=== PATIENT | female | born 1975 | race Caucasian/White ===

== ENCOUNTER 2017-01-09 14:40 | Emergency (ER) | payer OTHER ==
[~2017-01-09] VITALS: Wt 98.0 kg
--- NOTE | 2017-01-09 16:36 | RADRPT ---
PROCEDURE: US Pelvis. CLINICAL INDICATION: Pelvic pain. TECHNIQUE: The pelvis was evaluated with transabdominal and transvaginal sonography in the axial a nd sagittal planes. COMPARISON: No prior study is available for comparison. FINDINGS: Uterus: 8.8 x 5.6 x 8.6 cm. Endometrium: 11.2 mm. An IUD is present in satisfactory position within the endometrial canal. Right ovary: 3.1 x 1.7 x 2.1 cm. Left ovary: 2.9 x 1.3 x 2.1 cm. Uterine masses: None. Ovarian masses: None. Color Doppler and pulsed Doppler sonography demonstrate normal flow to the ova jada. Other pelvic masses: None. Free fluid: None. IMPRESSION: 1. IUD in satisfactory position. 2. Otherwise normal pelvic ultrasound. RPTAT: QQ .Demetrius Herring MD, MD Date Time Electronically viewed and signed by .Demetrius Herring MD, on 01/09/2017 16:36 .R/
[2017-01-09 17:14] LABS: ADD UMIC YES; UR ASCORBIC ACID NEGATIVE (NEGATIVE); UR BILIRUBIN (Dip) NEGATIVE (NEGATIVE); UR BLOOD (Dip) 3+ mg/dL (NEGATIVE); UR CLARITY SLIGHTLY CLOUDY (CLEAR); UR COLOR YELLOW (YELLOW); UR GLUCOSE (Dip) NEGATIVE (NEGATIVE); UR KETONES (Dip) NEGATIVE (NEGATIVE); UR LEUKOCYTE ESTERASE (Dip) TRACE Leu/ul (NEGATIVE); UR NITRITE (Dip) NEGATIVE (NEGATIVE); UR RBC 10 /HPF (0-5); UR SPECIFIC GRAVITY (Dip) 1.019 (1.003-1.030); UR SQUAMOUS EPITHELIAL CELL FEW /HPF (FEW); UR TOTAL PROTEIN (Dip) NEGATIVE (NEGATIVE); UR UROBILINOGEN (Dip) NEGATIVE (NEGATIVE)
[2017-01-09] MEDS ORDERED: AZITHROMYCIN 250 MG TAB PO ONE (17:30)
[2017-01-09] MEDS ORDERED: CEFTRIAXONE 250 MG INJ IM ONE (17:30)
[2017-01-09] MEDS ORDERED: IBUP-1542 PO (17:59)
[2017-01-09] MEDS ORDERED: LIDOCAINE 1% (MDV) 20 ML INJ SC ONE (18:00)
--- NOTE | 2017-01-09 18:27 | ERD ---
ER Documentation Chief Complaint Date/Time DATE: 01/09/17 TIME: 18:23 Chief Complaint PELVIC PAIN X 3 DAYS HPI 41-year-old female patient with no significant past medical history is a A1 presents to the ED complaining of lower pelvic pain and states that she has a new sexual partner 1 month ago and states that she is concerned for STDs. Reports that she feels like her urine is cloudy with some slight white discharge. Denies any dysuria, flank pain, fever, chills. Reports that her last menses on December 09, 2016. States that she has IUD. Denies any abdominal pain, nausea, vomiting, diarrhea, constipation. ROS All systems reviewed and are negative except as per history of present illness. Medications Home Meds Active Scripts Ibuprofen* (Motrin*) 600 Mg Tab, 600 MG PO Q6, #30 TAB Prov:JOSE MANUEL MORALES PA-C 01/09/17 Allergies Allergies: Coded Allergies: No Known Drug Allergy (Verified Allergy, Unknown, 07/23/12) PMhx/Soc History of Surgery: No Anesthesia Reaction: No Hx Neurological Disorder: No Hx Respiratory Disorders: No Hx Cardiac Disorders: No Hx Psychiatric Problems: No Hx Miscellaneous Medical Probl: No Hx Alcohol Use: No Hx Substance Use: No Hx Tobacco Use: No Smoking Status: Current every day smoker Physical Exam Vitals Vital Signs Date Time Temp Pulse Resp B/P Pulse Ox O2 Delivery O2 Flow Rate FiO2 01/09/17 14:43 98.0 91 18 152/87 99 Physical Exam Const: [id number]-[id number]-[id number], well-nourished. In no acute distress. Head: Atraumatic, normocephalic Eyes: Normal Conjunctiva without injection. No purulent discharge. ENT: Normal external ear, nose. Moist oropharynx without tonsillar exudates. Non -erythematous pharynx. Uvula midline. No drooling. No trismus. Neck: No cervical midline tenderness. Full range of motion. No meningismus. No cervical lymphadenopathy. No JVD. Resp: Clear to auscultation bilaterally. No wheezing, rhonchi, rales, or crackles. No accessory muscle use. No retractions. Cardio: Regular rate and rhythm. No murmurs, rubs or gallops. Abd: Soft, nontender, non distended. Normal bowel sounds. No palpable masses. No rebound tenderness. No guarding. Negative McBurney's point. Negative psoas sign. Negative obturator sign. : See exam in MDM. Skin: No petechiae or rashes Back: No midline tenderness. No CVA tenderness. Ext: No cyanosis, or edema. Neur: Awake and alert. Normal gait. Normal coordination. Psych: Normal Mood and Affect Results 24 hrs Laboratory Tests Test 01/09/17 16:59 Urine Color YELLOW Urine Clarity SLIGHTLY CLOUDY Urine pH 5.0 Urine Specific Novelty 1.019 Urine Ketones NEGATIVEmg/dL Urine Nitrite NEGATIVEmg/dL Urine Bilirubin NEGATIVEmg/dL Urine Urobilinogen NEGATIVEmg/dL Urine Leukocyte Esterase TRACELeu/ul Urine Microscopic RBC 10/HPF Urine Microscopic WBC 5/HPF Urine Squamous Epithelial Cells FEW/HPF Urine Hemoglobin 3+mg/dL Urine Glucose NEGATIVEmg/dL Urine Total Protein NEGATIVEmg/dl Urine Test NEGATIVE Chlamydia trachomatis RNA (TMA) NOT DETECTED Chlamydia/GC Comment SEE NOTE Neisseria gonorrhoeae RNA (TMA) NOT DETECTED Current Medications Medications (Trade) Dose Ordered Sig/Sammi Route PRN Reason Start Time Stop Time Status Last Admin Dose Admin Ceftriaxone Sodium (Rocephin) 250 mg ONCE ONCE IM 01/09/17 17:30 01/09/17 17:31 DC 01/09/17 18:03 Azithromycin (Zithromax) 1,000 mg ONCE ONCE PO 01/09/17 17:30 01/09/17 17:31 DC 01/09/17 18:03 Lidocaine (Xylocaine 1% (Mdv) 20 ml) 20 ml ONCE ONCE SC 01/09/17 18:00 01/09/17 18:01 DC 01/09/17 18:04 Procedures/[facility] This is a 41-year-old female patient with no sniffing a past medical history presents to the ED complaining of vaginal pain, cloudy urine as well as concern for STDs. Patient is afebrile nontoxic appearing. Patient has normal vital signs. A pelvic ultrasound, pelvic exam, gonorrhea and chlamydia, urinalysis, urine was ordered to further evaluate patient. Urinalysis showed trace leukocyte esterase and 5 white blood cells however does not complain of dysuria. Negative . Patient states that she would like a urine culture to be sent. Patient was treated prophylactically due to her concern for STDS with ceftriaxone and Zithromax. Pending GC test. 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 CLINICAL INDICATION: Pelvic pain. TECHNIQUE: The pelvis was evaluated with transabdominal and transvaginal sonography in the axial and sagittal planes. COMPARISON: No prior study is available for comparison. FINDINGS: Uterus: 8.8 x 5.6 x 8.6 cm. Endometrium: 11.2 mm. An IUD is present in satisfactory position within the endometrial canal. Right ovary: 3.1 x 1.7 x 2.1 cm. Left ovary: 2.9 x 1.3 x 2.1 cm. Uterine masses: None. Ovarian masses: None. Color Doppler and pulsed Doppler sonography demonstrate normal flow to the ovaries. Other pelvic masses: None. Free fluid: None. IMPRESSION: 1. IUD in satisfactory position. 2. Otherwise normal pelvic ultrasound. Low suspicion for ectopic , ovarian torsion, appendicitis, diverticulitis, ovarian cysts, fibroids, acute abdomen, pelvic inflammatory disease, HSV, pyelonephritis or other emergent conditions. Discharge medications: Ibuprofen Patient to follow up with [facility] in 2 days for further evaluation and treatment. Patient is to return sooner to the ED for any worsening symptoms. Patient's questions were answered. Patient understood and agreed with discharge plan. Departure Diagnosis: Primary Impression: Concern about STD in female without diagnosis Additional Impression: Vaginal pain Condition: Stable Patient Instructions: If You Think You Have an STD, Pelvic Pain, Unknown Cause Referrals: [facility] YOU HAVE RECEIVED A MEDICAL SCREENING EXAM AND THE RESULTS INDICATE THAT YOU DO NOT HAVE A CONDITION THAT REQUIRES URGENT TREATMENT IN THE EMERGENCY DEPARTMENT. FURTHER EVALUATION AND TREATMENT OF YOUR CONDITION CAN WAIT UNTIL YOU ARE SEEN IN YOUR DOCTORS OFFICE WITHIN THE NEXT 1-2 DAYS. IT IS YOUR RESPONSIBILITY TO MAKE AN APPOINTMENT FOR FOLOW-UP CARE. IF YOU HAVE A PRIMARY DOCTOR --you should call your primary doctor and schedule an appointment IF YOU DO NOT HAVE A PRIMARY DOCTOR YOU CAN CALL OUR PHYSICIAN REFERRAL HOTLINE AT IF YOU CAN NOT AFFORD TO SEE A PHYSICIAN YOU CAN CHOSE FROM THE FOLLOWING [facility] [address] [facility]. [facility] [address] [email or web address] [address] [facility] [address] [facility] [address] [facility]. [facility]. [address] [facility]. [facility] YOU HAVE RECEIVED A MEDICAL SCREENING EXAM AND THE RESULTS INDICATE THAT YOU DO NOT HAVE A CONDITION THAT REQUIRES URGENT TREATMENT IN THE EMERGENCY DEPARTMENT. FURTHER EVALUATION AND TREATMENT OF YOUR CONDITION CAN WAIT UNTIL YOU ARE SEEN IN YOUR DOCTORS OFFICE WITHIN THE NEXT 1-2 DAYS. IT IS YOUR RESPONSIBILITY TO MAKE AN APPOINTMENT FOR FOLOW-UP CARE. IF YOU HAVE A PRIMARY DOCTOR --you should call your primary doctor and schedule and appointment IF YOU DO NOT HAVE A PRIMARY DOCTOR YOU CAN CALL OUR PHYSICIAN REFERRAL HOTLINE AT . IF YOU CAN NOT AFFORD TO SEE A PHYSICIAN YOU CAN CHOSE FROM THE FOLLOWING [facility] INSTITUTIONS: [facility] [address] [place] [address] [facility] [address] [place] [address] [facility] [address] [place] [address] [facility] URGENT CARE/SPECIALTIES Additional Instructions: Call your primary care doctor TOMORROW for an appointment during the next 2-3 days.See the doctor sooner or return here if your condition worsens before your appointment time - fever, worsening abdominal pain, nausea, vomiting, etc. JOSE MANUEL MORALES PA-C Jan 09, 2017 18:27
[2017-01-09 19:25] VITALS: BP 122/64; PULSE 68; RESP 18
== END 2017-01-09 19:26 | disposition home or self-care (01) ==
LOC: FTE 14:40
DX: R10.2 Pelvic and perineal pain (principal); F17.210 Nicotine dependence, cigarettes, uncomplicated; Z20.2 Contact with and (suspected) exposure to infections with a predominantly sexual mode of transmission
CPT/HCPCS: 76856; 81001; 84703; 87086; 87591; 96372; J0696; Z7502; Z7610

== ENCOUNTER 2018-12-17 16:32 | Emergency (ER) | payer SELFPAY ==
[~2018-12-17] VITALS: Ht 170.2 cm; Wt 90.4 kg
[~2018-12-17 16:32] MED LIST: IBUP-1542 PO
[2018-12-17 16:41] VITALS: Ht 170.2 cm; Wt 90.4 kg
[2018-12-17] MEDS ORDERED: SOD CHLORIDE 0.9% 1,000 ML IV STA (18:03)
[2018-12-17] MEDS ORDERED: KETOROLAC 30 MG INJ IV STA (18:03)
[2018-12-17] MEDS ORDERED: ONDANSETRON 4 MG INJ IV STA ×2 (18:03→19:42)
[2018-12-17] MEDS ORDERED: morphine 4 MG/ML VIAL IV STA (18:03)
[2018-12-17 18:55] VITALS: BP 109/58; PULSE 78; RESP 16
[2018-12-17] MEDS ORDERED: CEFTRIAXONE 1 GM/50 ML (PMX) 50 ML IVPB ONE (20:00)
[2018-12-17] MEDS ORDERED: AZITHROMYCIN 500 MG TAB PO ONE (20:00)
[2018-12-17] MEDS ORDERED: metroNIDAZOLE 500 MG TAB PO ONE (20:00)
[2018-12-17] MEDS ORDERED: PHEN-538 PO (21:08)
[2018-12-17] MEDS ORDERED: CIPR500T4 PO (21:08)
[2018-12-17] MEDS ORDERED: ONDA4TAB14 PO (21:08)
[2018-12-17] MEDS ORDERED: AZIT500T3 PO (21:08)
[2018-12-17] MEDS ORDERED: TRAM50TA2 PO (21:08)
--- NOTE | 2018-12-17 21:28 | ERD ---
ER Documentation Chief Complaint Chief Complaint Pt c/o vaginal discharge, fever, and lower abd pain HPI History of Present Illness: 43-year-old female who denies a past medical history coming in today due to complaint of watery/yellow white vaginal discharge without odor, urinary discomfort, fever, chills, left flank pain, lower a bdominal pain. Patient reports symptoms started approximately 3 days ago in which she experienced " a funny feeling when I urinate" then symptoms of chills, weakness, headedness, decreased appetite and precipitated. Patient denies any other associated symptoms At home pharmacological/nonpharmacological treatment for symptoms: Denies Denies social concerns; Denies recent foreign travel ROS All systems reviewed and are negative except as per history of present illness. Medications Home Meds Active Scripts Metronidazole* (Flagyl*) 500 Mg Tablet, 500 MG PO BID for VAGINOSIS/PELVIC INFLAMMATION for 14 Days, #27 TAB Prov:PILO PHELAN NP 12/17/18 Azithromycin* (Zithromax*) 500 Mg Tablet, 1000 MG PO ONCE for PELVIC INFLAMMATION, #1 TAB First dose given during your ER visit on 12/17/2018; use this prescription as a repeat dose to be taken on 12/24/2018 Prov:PILO PHELAN NP 12/17/18 Ondansetron (Ondansetron Odt) 4 Mg Tab.rapdis, 4 MG PO Q6H PRN for NAUSEA AND/OR VOMITING, #12 TAB Prov:PILO PHELAN NP 12/17/18 Tramadol HCl (Tramadol HCl) 50 Mg Tablet, 50 MG PO Q8, #10 TAB Prov:PILO PHELAN NP 12/17/18 Phenazopyridine Hcl* (Pyridium*) 200 Mg Tab, 200 MG PO TID PRN for URINARY PAIN, #6 TAB Prov:PILO PHELAN NP 12/17/18 Ciprofloxacin Hcl* (Ciprofloxacin Hcl*) 500 Mg Tablet, 500 MG PO BID for KIDNEY INFECTION/URINE INFECTI for 7 Days, #13 TAB Prov:PILO PHELAN NP 12/17/18 Ibuprofen* (Motrin*) 600 Mg Tab, 600 MG PO Q6, #30 TAB Prov:JOSE MANUEL MORALES PA-C 01/09/17 Allergies Allergies: Coded Allergies: No Known Drug Allergy (Verified Allergy, Unknown, 07/23/12) PMhx/Soc Medical and Surgical Hx: pt denies Medical Hx, pt denies Surgical Hx History of Surgery: No Anesthesia Reaction: No Hx Neurological Disorder: No Hx Respiratory Disorders: No Hx Cardiac Disorders: No Hx Psychiatric Problems: No Hx Miscellaneous Medical Probl: No Hx Alcohol Use: Yes (SOCIALLY) Hx Substance Use: No Hx Tobacco Use: Yes (SOCIALLY) Smoking Status: Current some day smoker Physical Exam Vitals Vital Signs Date Temp Pulse Resp B/P (MAP) Pulse Ox O2 O2 Flow FiO2 Time Delivery Rate 12/17/18 99.1 78 16 109/58 97 Room Air 18:55 (75) 12/17/18 102.8 100 16 126/59 98 16:41 (81) Physical Exam Const: No acute distress, febrile Head: Atraumatic Eyes: Normal Conjunctiva ENT: Normal External Ears, Nose and Mouth. Neck: Full range of motion. No meningismus. Resp: Clear to auscultation bilaterally Cardio: Regular rate and rhythm, no murmurs. Heart rate 98. Abd: Soft, mild tenderness to palpation to right lower quadrant, suprapubic, left lower quadrant, non distended. Active bowel sounds in all 4 quadrants. No guarding, no masses, no rigidity. No grimacing noted. Skin: No petechiae or rashes Back: No midline; left CVA tenderness Ext: No cyanosis, or edema Neur: Awake and alert x3, speaking in clear sentences, no focal deficits or facial asymmetry Psych: Normal Mood and Affect Result Diagram: 12/17/18 1816 12/17/18 1816 Results 24 hrs Laboratory Tests Test 12/17/18 18:16 12/17/18 18:25 White Blood Count 8.4 10^3/ul Red Blood Count 4.07 10^6/ul Hemoglobin 11.1 g/dl Hematocrit 33.0 % Mean Corpuscular Volume 81.1 fl Mean Corpuscular Hemoglobin 27.3 pg Mean Corpuscular Hemoglobin Concent 33.6 g/dl Red Cell Distribution Width 13.1 % Platelet Count 192 10^3/UL Mean Platelet Volume 10.2 fl Immature Granulocytes % 0.500 % Neutrophils % 77.3 % Lymphocytes % 12.3 % Monocytes % 9.5 % Eosinophils % 0.0 % Basophils % 0.4 % Nucleated Red Blood Cells % 0.0 /100WBC Immature Granulocytes # 0.040 10^3/ul Neutrophils # 6.5 10^3/ul Lymphocytes # 1.0 10^3/ul Monocytes # 0.8 10^3/ul Eosinophils # 0.0 10^3/ul Basophils # 0.0 10^3/ul Nucleated Red Blood Cells # 0.0 10^3/ul Urine Color YELLOW Urine Clarity CLOUDY Urine pH 6.0 Urine Specific [place] 1.005 Urine Ketones NEGATIVE mg/dL Urine Nitrite POSITIVE mg/dL Urine Bilirubin NEGATIVE mg/dL Urine Urobilinogen NEGATIVE mg/dL Urine Leukocyte Esterase 3+ Dalton/ul Urine Microscopic RBC 66 /HPF Urine Microscopic WBC > 182 /HPF Urine Squamous Epithelial Cells FEW /HPF Urine Bacteria MODERATE /HPF Urine Mucus FEW /HPF Urine Hemoglobin 3+ mg/dL Urine Glucose NEGATIVE mg/dL Urine Total Protein 2+ mg/dl Sodium Level 137 mmol/L Potassium Level 3.7 mmol/L Chloride Level 102 mmol/L Carbon Dioxide Level 27 mmol/L Anion Gap 8 Blood Urea Nitrogen 9 mg/dl Creatinine 0.81 mg/dl Est Glomerular Filtrat Rate mL/min > 60 mL/min Glucose Level 109 mg/dl Calcium Level 8.7 mg/dl Total Bilirubin 0.3 mg/dl Direct Bilirubin 0.00 mg/dl Indirect Bilirubin 0.3 mg/dl Aspartate Amino Transf (AST/SGOT) 10 IU/L Alanine Aminotransferase (ALT/SGPT) 20 IU/L Alkaline Phosphatase 88 IU/L Total Protein 6.5 g/dl Albumin 3.3 g/dl Globulin 3.20 g/dl Albumin/Globulin Ratio 1.03 Lipase 51 U/L POC Beta HCG, Qualitative NEGATIVE Current Medications Medications Dose Sig/Sammi Start Time Status Last (Trade) Ordered Route PRN Stop Time Admin Dose Reason Admin Sodium 1,000 ml @ Q1H STAT 12/17/18 DC 12/17/18 Chloride 1,000 mls/hr IV 18:03 18:22 12/17/18 19:02 Morphine 4 mg ONCE STAT 12/17/18 DC 12/17/18 Sulfate IV 18:03 18:31 (morphine) 12/17/18 18:05 Ondansetron 4 mg ONCE STAT 12/17/18 DC 12/17/18 HCl (Zofran IV 18:03 18:32 Inj) 12/17/18 18:05 Ketorolac 30 mg ONCE STAT 12/17/18 DC 12/17/18 Tromethamine IV 18:03 18:31 (Toradol) 12/17/18 18:05 Ceftriaxone 50 ml @ ONCE ONCE 12/17/18 DC 12/17/18 Sodium 100 mls/hr IVPB 20:00 19:45 12/17/18 20:29 1,000 mg ONCE ONCE 12/17/18 DC 12/17/18 Azithromycin PO 20:00 20:01 (Zithromax) 12/17/18 20:01 500 mg ONCE ONCE 12/17/18 DC 12/17/18 Metronidazole PO 20:00 20:10 (Flagyl) 12/17/18 20:01 Ondansetron 4 mg ONCE STAT 12/17/18 DC 12/17/18 HCl (Zofran IV 19:42 20:01 Inj) 12/17/18 19:52 500 mg ONCE ONCE 12/17/18 12/17/18 Ciprofloxacin PO 21:30 21:18 (Cipro) 12/17/18 21:31 Procedures/MDM ED COURSE: ED course includes a thorough examination and history. The patient was stable throughout ED course. I kept the patient and/or family informed of laboratory and diagnostic imaging results throughout the ED course. LABS: CBC: no e/o of systemic infection or severe anemia CMP: no e/o severe acidosis, alkalosis, renal failure, diabetic ketoacidosis, liver disease Lipase within normal limits urine negative Urinalysis positive for nitrates, 3+ leukocyte Estrace, 66 RBCs, over 182 WBCs, 3+ hemoglobin, moderate bacteria Urogenital wet mount positive for 3 WBCs, 4+ bacteria, positive clue cells Urine culture pending Gonorrhea chlamydia pending MEDICATIONS GIVEN IN ER: IV NS, ketorolac, morphine, Zofran patient tolerated medication well with no adverse reactions. Patient reported improvement in pain. DIAGNOSTIC IMAGING: None PROCEDURES: None. MEDICAL DECISION MAKING: Low suspicion for life-threatening medical emergency. Due to physical exam and urinalysis results showing urinary tract infection, high suspicion for febrile patient with pyelonephritis without leukocytosis; IV ceftriaxone ordered. With clue cells seen on urogenital wet mount and patient with pelvic pain, will prophylactically treat for pelvic inflammatory disease with 1 g of azithromycin during ER visit and repeat dose in 7 days PLUS first dose of metronidazole. Ciprofloxacin use for treatment of pyelonephritis; first dose given during ER visit. Otherwise healthy patient presenting with constellation of symptoms likely representing pyelonephritis, bacteria vaginosis, pelvic inflammation as characterized by history, physical exam findings, lab findings Patient reassessment @1939: Results discussed. Orders placed. Patient reassessment at 2114:patient is hemodynamically stable. No respiratory distress, otherwise relatively well appearing and nontoxic. Disposition given. Patient educated on diagnoses, prescriptions, follow-up care, return pr ecautions. Strict return precautions given for worsening condition; questions answered discharge. Patient verbalizes understanding of discharge instructions. PRESCRIPTIONS FOR HOME: Ciprofloxacin, metronidazole, Pyridium, azithromycin, Zofran, tramadol DISPOSITION: DISCHARGE At this time, patient is stable for discharge and outpatient management. I have instructed the patient to follow-up with his/her primary care physician in 1-2 days. I have discussed with the patient the possibility of needing to see a specialist for further workup and imaging studies if symptoms persist. I have instructed the patient to promptly return to the ER for any new or worsening symptoms including increased pain, fever, nausea, vomiting, weakness or LOC. The patient and/or family expressed understanding of and agreement with this plan. All questions were answered. Home care instructions were provided. DISCLAIMER: Inadvertent spelling and grammatical errors are likely due to EHR/dictation software use and do not reflect on the overall quality of patient care. Also, please note that the electronic time recorded on this note does not necessarily reflect the actual time of the patient encounter. Departure Diagnosis: Primary Impression: Pelvic inflammation in female Additional Impressions: Bacterial vaginosis Pyelonephritis Condition: Stable Patient Instructions: Urinary Tract Infections in Women, Pelvic Inflammatory Disease, Pyelonephritis, Female (Adult), Vaginitis, Bacterial Referrals: [facility] YOU HAVE RECEIVED A MEDICAL SCREENING EXAM AND THE RESULTS INDICATE THAT YOU DO NOT HAVE A CONDITION THAT REQUIRES URGENT TREATMENT IN THE EMERGENCY DEPARTMENT. FURTHER EVALUATION AND TREATMENT OF YOUR CONDITION CAN WAIT UNTIL YOU ARE SEEN IN YOUR DOCTORS OFFICE WITHIN THE NEXT 1-2 DAYS. IT IS YOUR RESPONSIBILITY TO MAKE AN APPOINTMENT FOR FOLOW-UP CARE. IF YOU HAVE A PRIMARY DOCTOR --you should call your primary doctor and schedule an appointment IF YOU DO NOT HAVE A PRIMARY DOCTOR YOU CAN CALL OUR PHYSICIAN REFERRAL HOTLINE AT IF YOU CAN NOT AFFORD TO SEE A PHYSICIAN YOU CAN CHOSE FROM THE FOLLOWING [facility] CLINICS [facility] [address] [facility] [address] [facility]. [facility] [address] [facility] [address] [facility] [phone] [address] [facility]. [facility] [address] [facility]. [facility] YOU HAVE RECEIVED A MEDICAL SCREENING EXAM AND THE RESULTS INDICATE THAT YOU DO NOT HAVE A CONDITION THAT REQUIRES URGENT TREATMENT IN THE EMERGENCY DEPARTMENT. FURTHER EVALUATION AND TREATMENT OF YOUR CONDITION CAN WAIT UNTIL YOU ARE SEEN IN YOUR DOCTORS OFFICE WITHIN THE NEXT 1-2 DAYS. IT IS YOUR RESPONSIBILITY TO MAKE AN APPOINTMENT FOR FOLOW-UP CARE. IF YOU HAVE A PRIMARY DOCTOR --you should call your primary doctor and schedule and appointment IF YOU DO NOT HAVE A PRIMARY DOCTOR YOU CAN CALL OUR PHYSICIAN REFERRAL HOTLINE AT . IF YOU CAN NOT AFFORD TO SEE A PHYSICIAN YOU CAN CHOSE FROM THE FOLLOWING [facility] INSTITUTIONS: [facility] [address] [place] [address] [facility] [address] [place] [address] [facility] [address] [place] [address] [employer] [place] [address] [facility] [address] [place], [place] [id number] OFFICE FAX ZENON JOHNSON [address] [place], [place] [id number] [place] [address] [place], [place] [id number] CLEMENTE HAGER [address] [address] [address] [address] [place] [address] [facility] [address] [place], [place] [id number] [address] [facility] [address] - [place] [address], [facility] [address] [address]CDON[place]D, [place] [address] [facility]. [address], [facility] [address] [address] [address] [place], [place] [phone] Additional Instructions: Thank you very much for allowing us to participate in your care. Your health and safety is our top priority at [facility]. It is important to read all discharge instructions and education provided in your discharge packet. *If you develop increased abdominal pain, increased flank pain, persistent fevers, altered mental status, feeling weak/lethargic; return to emergency department* Call your primary care doctor TOMORROW for an appointment during the next 2-4 days and bring all the information and medications prescribed. Have prescriptions filled and follow precisely the directions on the label. -Ciprofloxacin and azithromycin are an antibiotic; take this medication every day as listed on your prescription. You must complete the entire course of treatment that is listed on your prescription this is very important because it takes a certain number of days to kill the bacteria that is causing the infection. -Zofran is a medication for nausea/vomitting; take this medication as needed for nausea/vomiting/decreased appetite. -Phenazopyridine/Pyridium is a medication that will help decrease urinary pain. This medication will make your urine turn orange color. This is a normal side effect of the medication. -Tramadol is an opiate pain medication; take this medication as needed for moderate to severe pain. No operating of heavy machinery while taking this medication. It may cause drowsiness. Zofran is a medication for nausea/vomitting; take this medication as needed for nausea/vomiting/decreased appetite. If the symptoms get worse and your provider is unavailable, return to the Emergency Department immediately. PILO PHELAN NP Dec 17, 2018 21:25
[2018-12-17] MEDS ORDERED: METR500T PO (21:29)
[2018-12-17] MEDS ORDERED: CIPROFLOXACIN 500 MG TAB PO ONE (21:30)
== END 2018-12-17 21:37 | disposition home or self-care (01) ==
LOC: FTE 16:32
DX: N73.9 Female pelvic inflammatory disease, unspecified (principal); F17.210 Nicotine dependence, cigarettes, uncomplicated; N76.0 Acute vaginitis; N12 Tubulo-interstitial nephritis, not specified as acute or chronic
CPT/HCPCS: 36415; 80053; 81001; 81025; 83690; 85025; 87086; 87210; 87591; 96374; 96375; 96376; 99284; J0696; J1885; J2270; J2405; J7030